=== PATIENT | female | born 1950 | race Caucasian/White ===

== ENCOUNTER 2020-03-23 19:00 | Emergency (ER) | payer OTHER ==
[~2020-03-23] VITALS: Ht 162.6 cm; Wt 127.0 kg
[2020-03-26] MEDS ORDERED: OXYM.05NI (11:03)
== END 2020-03-23 20:56 | disposition home or self-care (01) ==
LOC: ER 19:00
DX: R04.0 Epistaxis (principal); Z88.8 Allergy status to other drugs, medicaments and biological substances
CPT/HCPCS: 30901; 99283-25

== ENCOUNTER → 2022-11-10 | Outpatient (CLI) | payer OTHER ==
[~2022-11-10] MED LIST: OXYM.05NI
== END | disposition home or self-care (01) ==
LOC: LAB SHORT 08:15
DX: R30.9 Painful micturition, unspecified (principal)
CPT/HCPCS: 87086

== ENCOUNTER → 2022-11-30 | Outpatient (CLI) | payer OTHER | END | disposition home or self-care (01) | LOC: LAB SHORT 10:46 | DX: R30.0 Dysuria (principal) | CPT/HCPCS: 87086 ==

== ENCOUNTER → 2023-03-12 | Outpatient (CLI) | payer MEDICARE | END | disposition home or self-care (01) | LOC: LAB 17:49 → LAB SHORT 17:49 | DX: R35.0 Frequency of micturition (principal) | CPT/HCPCS: 87077; 87086; 87186 ==

== ENCOUNTER → 2025-01-27 | Outpatient (CLI) | payer MEDICARE | END | disposition home or self-care (01) | LOC: LAB 09:29 → LAB SHORT 09:29 | DX: N39.498 Other specified urinary incontinence (principal); R35.0 Frequency of micturition; R53.81 Other malaise | CPT/HCPCS: 87077; 87086; 87186 ==

== ENCOUNTER → 2025-09-30 | Outpatient (CLI) | payer MEDICARE | LOC: LAB SHORT 11:05 → LAB 11:05 | DX: E03.9 Hypothyroidism, unspecified (principal); E66.01 Morbid (severe) obesity due to excess calories | CPT/HCPCS: 84443 ==